=== PATIENT | male | born 1990 | race African-American/Black ===

== ENCOUNTER 2021-08-26 20:41 | Emergency (ER) | payer OTHER ==
[~2021-08-26] VITALS: Ht 180.3 cm; Wt 64.0 kg
[2021-08-26 22:50] VITALS: BP 148/103
== END 2021-08-26 23:08 | DRG 605 ==
LOC: ED 20:41
PROC: 0HQKXZZ Repair Right Lower Leg Skin, External Approach (ICD-10-PCS; principal; 2021-08-26)
DX: S81.811A Laceration without foreign body, right lower leg, initial encounter (principal); W20.8XXA Other cause of strike by thrown, projected or falling object, initial encounter; Y92.149 Unspecified place in prison as the place of occurrence of the external cause